=== PATIENT | male | born 1980 | race Hispanic/Latino ===

== ENCOUNTER 2023-04-11 11:34 | Emergency (ER) | payer OTHER ==
[2023-04-11] VITALS (8 sets, daily range): BP systolic 89–112; BP diastolic 47–78
[~2023-04-11] VITALS: Ht 185.4 cm; Wt 81.8 kg
== END 2023-04-11 13:56 | DRG 301 ==
LOC: ED 11:34
DX: I83.892 Varicose veins of left lower extremity with other complications (principal)